=== PATIENT | female | born 1960 | race Two or more races ===

== ENCOUNTER → 2025-01-20 | Outpatient (CLI) | payer SELFPAY ==
[2025-01-20 21:26] LABS: Hepatitis B Surface AB- Quant 4.8 mIU/mL
[2025-01-20 21:33] LABS: Mumps Virus IgG Ab Interp Positive (Negative); Mumps Virus IgG Antibody 2.5 AI
== END | disposition home or self-care (01) ==
LOC: LABWHC1 12:05
PROVIDERS: ATTEND Family Medicine
DX: Z01.84 Encounter for antibody response examination (principal)
CPT/HCPCS: 36415; 86317; 86480; 86706; 86735; 86762; 86765; 86780